=== PATIENT | male | born 1985 | race Caucasian/White ===

== ENCOUNTER → 2016-07-21 | Outpatient (REF) | payer OTHER | LOC: M LAB REF 09:48 | PROVIDERS: ATTEND Physician Assistant | DX: R30.0 Dysuria (principal); R36.9 Urethral discharge, unspecified ==

== ENCOUNTER → 2016-07-22 | Outpatient (REF) | payer OTHER | LOC: M LAB REF 20:09 → M LABDRWAD 20:10 | PROVIDERS: ATTEND Physician Assistant | DX: R36.9 Urethral discharge, unspecified (principal) ==

== ENCOUNTER → 2017-06-17 | Outpatient (REF) | payer SELFPAY | LOC: M LAB REF 12:20 | DX: J02.9 Acute pharyngitis, unspecified (principal) ==